=== PATIENT | female | born 1990 | race Caucasian/White ===

== ENCOUNTER 2017-08-07 11:38 | Emergency (ER) | payer OTHER | END 2017-08-07 14:39 | disposition home or self-care (01) | LOC: FTE 11:38 | DX: J20.9 Acute bronchitis, unspecified (principal) | CPT/HCPCS: 71045; 87400; 99284-25 ==

== ENCOUNTER 2019-01-19 15:39 | Inpatient (IN) | payer OTHER ==
[2019-01-19] MEDS ORDERED: LACTATED RINGER'S 1,000 ML IV (20:39)
[2019-01-19] MEDS ORDERED: BUTORPHANOL 2 MG INJ IV (21:00)
[2019-01-19] MEDS ORDERED: METHYLERGONOVINE 0.2 MG INJ IM (21:00)
[2019-01-19] MEDS ORDERED: CARBOPROST 250 MCG INJ IM (21:00)
[2019-01-19] MEDS ORDERED: LIDOCAINE 1% (MPF) 30 ML INJ INJ (21:00)
[2019-01-19] MEDS ORDERED: OXYTOCIN 30 UNITS/LR 500 ML IV ×4 (21:00)
[2019-01-19] MEDS ORDERED: MISOPROSTOL 200 MCG TAB PR (21:00)
[2019-01-19] MEDS ORDERED: IBUPROFEN 600 MG TAB PO (21:00)
[2019-01-19] MEDS: LACTATED RINGER'S 1,000 ML IV (21:23)
[2019-01-19 21:25] LABS: ADD MAN DIFF? NO
[2019-01-19 21:27] LABS: BASOPHILS % 0.3 % (0.0-2.0); EOSINOPHILS # 0.1 10^3/ul (0.0-0.5); EOSINOPHILS % 0.5 % (0.0-7.0); HEMATOCRIT 33.5 % (37.0-47.0); HEMOGLOBIN 10.6 g/dl (12.0-16.0); LYMPHOCYTES # 2.7 10^3/ul (0.8-2.9); MEAN CORPUSCULAR HEMOGLOBIN 27.2 pg (29.0-33.0); MEAN CORPUSCULAR HGB CONC 31.6 g/dl (32.0-37.0); MEAN CORPUSCULAR VOLUME 86.1 fl (82.0-101.0); MEAN PLATELET VOLUME 10.5 fl (7.4-10.4); MONOCYTE # 0.6 10^3/ul (0.3-0.9); MONOCYTES % 4.9 % (0.0-11.0); NEUTROPHIL # 8.7 10^3/ul (1.6-7.5); NEUTROPHILS % 71.6 % (39.0-77.0); PLATELET COUNT 236 10^3/UL (140-415); RED BLOOD COUNT 3.89 10^6/ul (4.20-5.40); RED CELL DISTRIBUTION WIDTH 13.8 % (11.5-14.5)
[2019-01-19 21:27] LABS: WHITE BLOOD COUNT 12.1 10^3/ul (4.8-10.8)
[2019-01-19 21:46] LABS: INR 0.92; PROTIME 12.5 Sec (11.9-14.9)
[2019-01-19 22:15] LABS: HEPATITIS B SURFACE ANTIGEN NEGATIVE (NEGATIVE)
[2019-01-19] MEDS: AMPICILLIN 2 GM/NS (PMX) 100 ML IVPB (23:45)
[2019-01-20] MEDS: TERBUTALINE 1 MG/ML INJ SC ×2 (00:19→07:58)
[2019-01-20] MEDS: AMPICILLIN 1 GM/NS (PMX) 50 ML IVPB ×4 (05:46→18:53)
[2019-01-20] MEDS: LACTATED RINGER'S 1,000 ML IV ×3 (06:00→11:29)
[2019-01-20 12:16] LABS: ADD UMIC YES; UR ASCORBIC ACID NEGATIVE (NEGATIVE); UR BILIRUBIN (Dip) NEGATIVE (NEGATIVE); UR BLOOD (Dip) 2+ mg/dL (NEGATIVE); UR CLARITY CLEAR (CLEAR); UR COLOR STRAW (YELLOW); UR GLUCOSE (Dip) NEGATIVE (NEGATIVE); UR KETONES (Dip) TRACE mg/dL (NEGATIVE); UR LEUKOCYTE ESTERASE (Dip) 1+ Leu/ul (NEGATIVE); UR NITRITE (Dip) NEGATIVE (NEGATIVE); UR RBC 0 /HPF (0-5); UR SPECIFIC GRAVITY (Dip) 1.004 (1.003-1.030); UR TOTAL PROTEIN (Dip) NEGATIVE (NEGATIVE); UR UROBILINOGEN (Dip) NEGATIVE (NEGATIVE); UR WBC 5 /HPF (0-5)
[2019-01-20] MEDS ORDERED: CEFAZOLIN 2 GM/50 ML (PMX) 50 ML IVPB ×2 (12:38→13:00)
[2019-01-20] MEDS ORDERED: MISOPROSTOL 200 MCG TAB PR ×2 (13:00→14:00)
[2019-01-20] MEDS ORDERED: OXYTOCIN 30 UNITS/LR 500 ML IV ×5 (13:00→15:03)
[2019-01-20] MEDS ORDERED: METHYLERGONOVINE 0.2 MG INJ IM ×2 (13:00→14:00)
[2019-01-20] MEDS ORDERED: CARBOPROST 250 MCG INJ IM ×2 (13:00→14:00)
[2019-01-20] MEDS ORDERED: FENTAnyl 50 MCG/ML VIAL (13:17)
[2019-01-20] MEDS ORDERED: morphine SULFATE/PF (10 MG/10 ML) INJ (13:17)
[2019-01-20] MEDS ORDERED: PHENYLephrine (100 MCG/ML) 10ML SYG (13:22)
[2019-01-20] MEDS ORDERED: DEXAMETHASONE 4 MG/ML 1 ML INJ (13:22)
[2019-01-20] MEDS ORDERED: ONDANSETRON 4 MG INJ (13:22)
[2019-01-20] MEDS ORDERED: NA PHOSPHATE/BIPHOS 133 ML ENEMA PR (14:00)
[2019-01-20] MEDS ORDERED: METHYLERGONOVINE 0.2 MG TAB PO (14:00)
[2019-01-20] MEDS ORDERED: HYDROCODONE/APAP (5/325) TAB PO (14:00)
[2019-01-20] MEDS: KETOROLAC 30 MG INJ IV ×2 (14:00→21:27)
[2019-01-20] MEDS ORDERED: ONDANSETRON 4 MG INJ IV (15:00)
[2019-01-20] MEDS ORDERED: ZOLPIDEM 5 MG TAB PO (15:00)
[2019-01-20] MEDS ORDERED: NALOXONE (0.4 MG/ML) INJ IV (15:00)
[2019-01-20] MEDS ORDERED: HYDROmorphONE 0.5 MG/0.5 ML SYG IV ×2 (15:00)
[2019-01-20] MEDS ORDERED: DIPHENHYDRAMINE 50 MG INJ IV (15:00)
[2019-01-20 15:20] LABS: RAPID PLASMA REAGIN NONREACTIVE (NR)
[2019-01-20] MEDS: OXYTOCIN 30 UNITS/LR 500 ML IV (16:32)
[2019-01-20] MEDS: SENNA/DOCUSATE NA (8.6MG/50MG) TAB PO (21:00)
[2019-01-21] MEDS: LACTATED RINGER'S 1,000 ML IV (00:05)
[2019-01-21] MEDS: CEFAZOLIN 2 GM/50 ML (PMX) 50 ML IVPB ×3 (00:06→15:59)
[2019-01-21] MEDS: KETOROLAC 30 MG INJ IV ×6 (02:00→20:00)
[2019-01-21] MEDS: AMPICILLIN 1 GM/NS (PMX) 50 ML IVPB ×5 (02:52→21:20)
[2019-01-21 08:02] LABS: ADD MAN DIFF? NO
[2019-01-21 08:08] LABS: WHITE BLOOD COUNT 12.9 10^3/ul (4.8-10.8)
[2019-01-21 08:08] LABS: BASOPHILS % 0.3 % (0.0-2.0); EOSINOPHILS % 0.3 % (0.0-7.0); HEMOGLOBIN 9.8 g/dl (12.0-16.0); LYMPHOCYTES # 2.5 10^3/ul (0.8-2.9); LYMPHOCYTES % 19.4 % (15.0-51.0); MEAN CORPUSCULAR HEMOGLOBIN 27.4 pg (29.0-33.0); MEAN CORPUSCULAR HGB CONC 31.6 g/dl (32.0-37.0); MEAN CORPUSCULAR VOLUME 86.6 fl (82.0-101.0); MEAN PLATELET VOLUME 11.1 fl (7.4-10.4); MONOCYTE # 0.8 10^3/ul (0.3-0.9); MONOCYTES % 6.1 % (0.0-11.0); NEUTROPHIL # 9.4 10^3/ul (1.6-7.5); NEUTROPHILS % 73.1 % (39.0-77.0); PLATELET COUNT 212 10^3/UL (140-415); RED BLOOD COUNT 3.58 10^6/ul (4.20-5.40); RED CELL DISTRIBUTION WIDTH 13.8 % (11.5-14.5)
[2019-01-21] MEDS: SENNA/DOCUSATE NA (8.6MG/50MG) TAB PO ×2 (09:27→21:20)
[2019-01-21] MEDS ORDERED: FERROUS SULFATE (EC) 325 MG TAB PO (13:00)
[2019-01-21] MEDS ORDERED: ASCORBIC ACID 500 MG TAB PO (13:00)
[2019-01-21] MEDS: IBUPROFEN 800 MG TAB PO ×2 (14:59→22:10)
[2019-01-21] MEDS: HYDROCODONE/APAP (5/325) TAB PO (15:00)
[2019-01-21] MEDS: ASCORBIC ACID 500 MG TAB PO (15:04)
[2019-01-21] MEDS: FERROUS SULFATE (EC) 325 MG TAB PO (15:04)
[2019-01-22] MEDS: KETOROLAC 30 MG INJ IV ×2 (02:00→08:00)
[2019-01-22] MEDS: AMPICILLIN 1 GM/NS (PMX) 50 ML IVPB (03:00)
[2019-01-22] MEDS: IBUPROFEN 800 MG TAB PO ×3 (05:49→21:30)
[2019-01-22] MEDS: SENNA/DOCUSATE NA (8.6MG/50MG) TAB PO ×2 (08:45→21:30)
[2019-01-22] MEDS: FERROUS SULFATE (EC) 325 MG TAB PO (08:45)
[2019-01-22] MEDS: ASCORBIC ACID 500 MG TAB PO (10:17)
[2019-01-22] MEDS: MEASLES,MUMPS,RUBELLA VACCINE INJ SC* (14:47)
[2019-01-22] MEDS: HYDROCODONE/APAP (5/325) TAB PO (19:59)
[2019-01-23] MEDS: IBUPROFEN 800 MG TAB PO ×2 (06:13→13:34)
[2019-01-23] MEDS ORDERED: DIPHTH/TET/ACEL PERTUSS (ADULT) 0.5 ML VIAL IM* (09:00)
[2019-01-23] MEDS ORDERED: MEASLES,MUMPS,RUBELLA VACCINE INJ SC* (09:00)
[2019-01-23] MEDS: LANOLIN HPA 1 PKT TOP (09:03)
[2019-01-23] MEDS: FERROUS SULFATE (EC) 325 MG TAB PO (09:03)
[2019-01-23] MEDS: ASCORBIC ACID 500 MG TAB PO (09:03)
[2019-01-23] MEDS: SENNA/DOCUSATE NA (8.6MG/50MG) TAB PO (09:03)
== END 2019-01-23 19:07 | disposition home or self-care (01) | DRG 787 ==
LOC: OBT 15:39 → L-D 01-20 00:25 → PP1 01-20 17:45 → L-D 17:57 → OBT 20:34 → L-D 20:34
PROC: 10D00Z1 Extraction of Products of Conception, Low, Open Approach (ICD-10-PCS; principal; 2019-01-20 12:15)
DX: O32.1XX0 Maternal care for breech presentation, not applicable or unspecified (principal); O23.43 Unspecified infection of urinary tract in pregnancy, third trimester; Z3A.37 37 weeks gestation of pregnancy; Z37.0 Single live birth; O99.013 Anemia complicating pregnancy, third trimester
CPT/HCPCS: 76818; 81001; 85025; 85610; 85730; 86592; 86850; 86900; 86901; 87086; 87340; 99464